=== PATIENT | female | born 1975 | race Hispanic/Latino ===

== ENCOUNTER 2018-02-22 22:02 | Emergency (ER) | payer OTHER ==
[2018-02-22] MEDS ORDERED: Ibuprofen 800 MG TAB ONE (22:15)
--- NOTE | 2018-02-22 22:38 | RAD ---
RIGHT HAND: 02/22/18 Three views. HISTORY: Right hand pain. Carpals appear unremarkable. metacarpals and phalanges appear intact. MCP joints and IP joints are un remarkable. IMPRESSION: Unremarkable exam. POS: [id number]
== END 2018-02-22 22:43 | disposition home or self-care (01) ==
LOC: SCSER 22:02
DX: M77.9 Enthesopathy, unspecified (principal); F41.9 Anxiety disorder, unspecified

== ENCOUNTER 2018-05-30 15:58 | Outpatient (CLI) | payer OTHER | END 2018-05-30 15:59 | disposition home or self-care (01) | LOC: BICMAMMO 15:58 | PROVIDERS: ATTEND Family Medicine | DX: Z12.31 Encounter for screening mammogram for malignant neoplasm of breast (principal) | CPT/HCPCS: 77063; 77067 ==

== ENCOUNTER 2019-03-15 16:53 | Emergency (ER) | payer OTHER ==
[2019-03-15 17:19] LABS: Bilirubin Negative (Negative); Blood, Urine Negative (Negative); Clarity Clear (Clear); Glucose, Urine (Dipstick) Negative (Negative); Leukocyte Negative (Negative); Nitrite Negative (Negative); Protein, Urine (Dipstick) Negative (Neg-Trace); Urobilinogen 0.2 mg/dL (Less than 2)
[2019-03-15 17:23] LABS: Pregnancy Test - Urine (BHCG) Negative (Negative); Pregu Control Background? CLEAR/WHITE (CLR/WHITE); Pregu Control Bar Appear? YES (CONTROL BAR)
== END 2019-03-15 17:41 | disposition home or self-care (01) ==
LOC: SCSER 16:53
DX: N94.0 Mittelschmerz (principal); F41.9 Anxiety disorder, unspecified; Z79.899 Other long term (current) drug therapy
CPT/HCPCS: 81003; 81025; 99284